=== PATIENT | female | born 1975 | race Hispanic/Latino ===

== ENCOUNTER 2019-12-18 13:00 | Inpatient (IN) | payer BC, OTHER ==
[2019-12-18 15:05] LABS: Absolute Lymphocytes (CBC) 0.5 K/uL (0.7-4.9); Basophils % 0.6 % (0-1.3); Hematocrit 43.5 % (36.0-45.0); MPV 9.3 fL (7.6-11.3); RBC Red Blood Cell Count 4.57 M/uL (3.86-4.86)
[2019-12-18] MEDS ORDERED: NA CHLORIDE 0.9% 1,000 ML ONE (15:06)
[2019-12-18] MEDS ORDERED: ONDANSETRON 4 MG/2 ML VIAL ONE (15:06)
[2019-12-18] MEDS ORDERED: KETOROLAC 30 MG/ML INJ ONE (15:06)
[2019-12-18] MEDS ORDERED: dexAMETHasone 10 MG/ML VIAL ONE (15:06)
[2019-12-18 15:18] LABS: Protime INR 1.04
--- NOTE | 2019-12-18 15:26 | RAD REPORT ---
EXAM DESCRIPTION: [place] Single View12/18/2019 3:19 pm CLINICAL HISTORY: Shortness of breath COMPARISON: none FINDINGS: Moderate bilateral pulmonary opacities The heart is normal size IMPRESSION: Moderate bilateral pulmonary opacities may indicate Covid pneumonia
[2019-12-18 15:47] LABS: ALT/SGPT 85 U/L (12-78); AST/SGOT 58 U/L (15-37); Alkaline Phosphatase 133 U/L (45-117); BUN Blood Urea Nitrogen 11 mg/dL (7-18); Bicarbonate 27 mmol/L (21-32); Bilirubin Direct 0.2 mg/dL (0-0.2); Bilirubin Total 0.4 mg/dL (0.2-1.0); Glucose Level 104 mg/dL (74-106); Magnesium 2.5 mg/dL (1.8-2.4); NT PRO-BNP 22 pg/mL (<125); Potassium 4.2 mmol/L (3.5-5.1); Protein, Total 8.4 g/dL (6.4-8.2); Sodium Level 139 mmol/L (136-145); Troponin (Emerg Dept Use Only) < 0.02 ng/mL (0.0-0.045)
--- NOTE | 2019-12-18 16:11 | ER ---
Nurse's Notes [facility] Name: Bessy Saavedra Age: 44 yrs Sex: Female : 1975 Arrival Date: 12/18/2019 Time: 13:06 Bed 14 Private MD: Diagnosis: Pneumonia due to other specified bacteria;Coronavirus infection, unspecified;Hypoxemia Presentation: 12/17 13:13 Chief complaint: Patient states: "I am still having a hard time breathing with a pretty jd3 bad headache. I was diagnosed on Saturday with COVID at [facility].". Coronavirus screen: cough unrelated to allergies, difficulty breathing, headache, nausea, shortness of breath, Client presents with at least one sign or symptom that may indicate coronavirus-19. Standard/surgical mask placed on the client. Provider contacted for isolation considerations. Ebola Screen: Patient negative for fever greater than or equal to 101.5 degrees Fahrenheit, and additional compatible Ebola Virus Disease symptoms. Initial Sepsis Screen: Does the patient meet any 2 criteria? No. Patient's initial sepsis screen is negative. Does the patient have a suspected source of infection? No. Patient's initial sepsis screen is negative. Risk Assessment: Do you want to hurt yourself or someone else? Patient reports no desire to harm self or others. Onset of symptoms was December 14, 2019. 13:13 Method Of Arrival: Ambulatory jd3 13:13 Acuity: FRED 2 jd3 Triage Assessment: 15:33 Respiratory: Onset: The symptoms/episode began/occurred 5 days ago, the patient has ll1 mild shortness of breath. 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 - Social history:: Smoking status: Patient denies any tobacco usage or history of. Screenin:32 Abuse screen: Denies threats or abuse. Nutritional screening: No deficits noted. ll1 Tuberculosis screening: No symptoms or risk factors identified. Fall Risk IV access (20 points). Gait- Weak (10 pts.). Total Juárez Fall Scale indicates Low Risk Score (25-44 pts). Fall prevention measures have been instituted. Placed close to Nursing Station Frequent Obs/Assesments occuring As available Patient and Family Educated on Fall Prevention Program and strategies. Assessment: 14:10 General: Appears ill, Behavior is calm, cooperative. Pain: Complains of pain in head ll1 Pain currently is 8 out of 10 on a pain scale. Quality of pain is described as aching, Is intermittent. Neuro: Level of Consciousness is awake, alert, obeys commands, Oriented to person, place, time, situation, Appropriate for age Deposit Clerk are equal bilaterally Moves all extremities. Full function Gait is steady, Speech is normal, Facial symmetry appears normal, Reports headache. Cardiovascular: No deficits noted. Rhythm is regular. Respiratory: Airway is patent Trachea midline Respiratory effort is even, labored, Respiratory pattern is symmetrical, tachypnea Breath sounds are diminished bilaterally. GI: Abdomen is flat, Bowel sounds present X 4 quads. Abd is soft and non tender X 4 quads. Reports vomiting, intermittent vomiting with coughing up sputum. Musculoskeletal: Circulation, motion, and sensation intact. Capillary refill < 3 seconds, Reports weakness in generalized. 15:15 Reassessment: No changes from previously documented assessment. Patient and/or family ll1 updated on plan of care and expected duration. Pain level reassessed. Patient is alert, oriented x 3, equal unlabored respirations, skin warm/dry/pink. 16:15 Reassessment: No changes from previously documented assessment. Patient and/or family ll1 updated on plan of care and expected duration. Pain level reassessed. Patient is alert, oriented x 3, equal unlabored respirations, skin warm/dry/pink. To be admitted for pneumonia. Patient verbalized understanding. 17:15 Reassessment: Patient and/or family updated on plan of care and expected duration. Pain ll1 level reassessed. Patient is alert, oriented x 3, equal unlabored respirations, skin warm/dry/pink. 18:15 Reassessment: Patient and/or family updated on plan of care and expected duration. Pain ll1 level reassessed. Patient is alert, oriented x 3, equal unlabored respirations, skin warm/dry/pink. 19:15 Reassessment: Patient and/or family updated on plan of care and expected duration. Pain ll1 level reassessed. Patient is alert, oriented x 3, equal unlabored respirations, skin warm/dry/pink. Feels better with oxygen on. ICU bed 7, patient verbalized understanding. Vital Signs: 13:16 BP 124 / 70; Pulse 95; Resp 26 S; Temp 98.7(TE); Pulse Ox 87% on R/A; Weight 68.04 kg jd3 (R); Height 4 ft. 11 in. (149.86 cm) (R); Pain 8/10; 14:00 BP 96 / 69; Pulse 85; Resp 18; ll1 15:00 BP 106 / 75; Pulse 87; Pulse Ox 92% on 2 lpm NC; ll1 16:00 BP 104 / 68; Pulse 86; Resp 24; Pulse Ox 99% on 2 lpm NC; ll1 16:40 BP 108 / 83; Pulse 87; Resp 22; Pulse Ox 97% on 2 lpm NC; Pain 0/10; ll1 17:00 BP 111 / 79; Pulse 88; Resp 24; Pulse Ox 93% on 2 lpm NC; ll1 18:00 BP 111 / 74; Pulse 75; Resp 23; Pulse Ox 92% on 2 lpm NC; ll1 19:00 BP 107 / 74; Pulse 84; Resp 23; Pulse Ox 93% on 2 lpm NC; ll1 19:28 BP 103 / 67; Pulse 74; Resp 23; Temp 98.9; Pulse Ox 97% on 2 lpm NC; ll1 13:16 Body Mass Index 30.30 (68.04 kg, 149.86 cm) jd3 ED Course: 13:06 Patient arrived in ED. mr 13:15 Triage completed. jd3 13:16 Arm band placed on. jd3 13:40 Pedro Claros, WALTER is Primary Nurse. ll1 13:48 Albin Garcia PA is PHCP. cp 13:48 Deanne Vines MD is Attending Physician. cp 15:19 XRAY Chest (1 view) In Process Unspecified. EDMS 15:33 Patient has correct armband on for positive identification. Bed in low position. Call ll1 light in reach. Side rails up X 1. Pulse ox on. NIBP on. 16:09 Clifford Perry is Hospitalizing Provider. cp 16:50 Inserted saline lock: 20 gauge in right antecubital area, using aseptic technique. ll1 Blood collected. 19:30 No provider procedures requiring assistance completed. 1 19:39 Patient admitted, IV remains in place. 1 Administered Medications: 15:11 Drug: Dexamethasone 6 mg Route: IVP; Site: right antecubital; 1 16:47 Follow up: Response: No adverse reaction; RASS: Alert and Calm (0) 1 15:11 Drug: Zofran (Ondansetron) 4 mg Route: IVP; Site: right antecubital; 1 16:46 Follow up: Response: No adverse reaction; RASS: Alert and Calm (0) [facility] 15:12 Drug: NS 0.9% 1000 ml Route: IV; Rate: 1000 ml/hr; Site: right antecubital; 1 16:47 Follow up: Response: No adverse reaction; RASS: Alert and Calm (0); IV Status: ll1 Completed infusion; IV Intake: 1000ml 15:12 Drug: TORadol - Ketorolac 15 mg Route: IVP; Site: right antecubital; 1 16:47 Follow up: Response: No adverse reaction; RASS: Alert and Calm (0) [facility] Intake: 16:47 IV: 1000ml; Total: 1000ml. [facility] Outcome: 16:10 Decision to Hospitalize by Provider. cp 19:38 Admitted to ICU via stretcher, room ICU 7, on monitor, with chart, Report called to ruben Riley in ICU. No questions about patient condition at this time. 19:38 Condition: stable 19:38 Instructed on the need for admit. 20:02 Patient left the ED. [facility] Signatures: Dispatcher [employer] [email or web address] EubanksDeja Corey, PA PA cp Davies, Jonathon, RN RN jd3 Lewis, Lynsay, RN RN thomas1 Corrections: (The following items were deleted from the chart) 19:46 14:10 Respiratory: Airway is patent Trachea midline Respiratory effort is even, ll1 unlabored, Respiratory pattern is regular, symmetrical, Breath sounds are clear bilaterally. ll1
--- NOTE | 2019-12-18 16:11 | EDPHYS ---
Physician Documentation [facility] Name: Bessy Saavedra Age: 44 yrs Sex: Female : 1975 Arrival Date: 12/18/2019 Time: 13:06 Bed 14 Private MD: ED Physician Deanne Vines HPI: 12/17 14:35 This 44 yrs old Female presents to ER via Ambulatory with complaints of cp COVID+, Breathing Difficulty. 14:35 The patient has shortness of breath at rest. cp 14:35 Onset: The symptoms/episode began/occurred gradually, and became worse today. Duration: cp The symptoms are continuous, and are steadily getting worse. Associated signs and symptoms: Pertinent positives: productive cough, headache, Pertinent negatives: chest pain, diaphoresis, fever. Severity of symptoms: in the emergency department the symptoms are unchanged despite home interventions. Patient reports she was diagnosed 4 days ago with COVID-19 and is currently taking prescribed Zithromax. Patient reports she is currently not taking any steroids. 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 - Social history:: Smoking status: Patient denies any tobacco usage or history of. ROS: 14:40 Constitutional: Negative for body aches, fever, poor PO intake. cp 14:40 Eyes: Negative for injury, pain, redness, and discharge. cp 14:40 ENT: Negative for ear pain, sore throat, difficulty swallowing, difficulty handling secretions. 14:40 Cardiovascular: Negative for chest pain, edema, palpitations. 14:40 Respiratory: Positive for cough, "sounds productive", shortness of breath, at rest. 14:40 Abdomen/GI: Negative for abdominal pain, vomiting, diarrhea, constipation. 14:40 Back: Negative for pain at rest, pain with movement. 14:40 Skin: Negative for rash. 14:40 Neuro: Positive for headache, Negative for altered mental status, syncope, weakness. 14:40 All other systems are negative. Exam: 14:45 Constitutional: The patient appears alert, awake, non-diaphoretic, non-toxic, well cp developed, well nourished, in obvious distress, mildly distressed. 14:45 Head/Face: Normocephalic, atraumatic. cp 14:45 Eyes: Periorbital structures: appear normal, Conjunctiva: normal, no exudate, no injection, Sclera: no appreciated abnormality, Lids and lashes: appear normal, bilaterally. 14:45 ENT: External ear(s): are unremarkable, Nose: is normal, Mouth: Lips: moist, Oral mucosa: moist, Posterior pharynx: Airway: no evidence of obstruction, patent. 14:45 Neck: ROM/movement: is normal, is supple, no meningismus, no nuchal rigidity. 14:45 Chest/axilla: Inspection: normal, Palpation: is normal, no crepitus, no tenderness. 14:45 Cardiovascular: Rate: normal, Rhythm: regular, Edema: is not appreciated, JVD: is not appreciated. 14:45 Respiratory: mild respiratory distress is noted, Respirations: labored breathing, that is mild, shallow respirations, that is mild, tachypnea, that is mild, Breath sounds: bronchial sounds, that are mild, are heard diffusely, decreased breath sounds, that are mild, throughout, stridor, is not appreciated, wheezing: is not appreciated. 14:45 Abdomen/GI: Inspection: abdomen appears normal, Palpation: abdomen is soft and non-tender, in all quadrants. 14:45 Back: pain, is absent, ROM is normal. 14:45 Skin: no rash present. 14:45 Neuro: Orientation: to person, place \\T\\ time. Mentation: is normal, Motor: moves all fours, strength is normal. 15:15 ECG was reviewed by the Attending Physician. cp Vital Signs: 13:16 BP 124 / 70; Pulse 95; Resp 26 S; Temp 98.7(TE); Pulse Ox 87% on R/A; Weight 68.04 kg jd3 (R); Height 4 ft. 11 in. (149.86 cm) (R); Pain 8/10; 14:00 BP 96 / 69; Pulse 85; Resp 18; ll1 15:00 BP 106 / 75; Pulse 87; Pulse Ox 92% on 2 lpm NC; ll1 16:00 BP 104 / 68; Pulse 86; Resp 24; Pulse Ox 99% on 2 lpm NC; ll1 16:40 BP 108 / 83; Pulse 87; Resp 22; Pulse Ox 97% on 2 lpm NC; Pain 0/10; ll1 17:00 BP 111 / 79; Pulse 88; Resp 24; Pulse Ox 93% on 2 lpm NC; ll1 18:00 BP 111 / 74; Pulse 75; Resp 23; Pulse Ox 92% on 2 lpm NC; ll1 19:00 BP 107 / 74; Pulse 84; Resp 23; Pulse Ox 93% on 2 lpm NC; ll1 19:28 BP 103 / 67; Pulse 74; Resp 23; Temp 98.9; Pulse Ox 97% on 2 lpm NC; ll1 13:16 Body Mass Index 30.30 (68.04 kg, 149.86 cm) jd3 MDM: 13:58 Patient medically screened. cp 15:00 Differential diagnosis: Bronchitis pneumonia, pulmonary edema, Pulmonary Embolism cp Sepsis influenza. 16:05 Data reviewed: vital signs, nurses notes, lab test result(s), EKG, radiologic studies, cp plain films. 16:05 Test interpretation: by ED physician or midlevel provider: ECG. Counseling: I had a cp detailed discussion with the patient and/or guardian regarding: the historical points, exam findings, and any diagnostic results supporting the discharge/admit diagnosis, lab results, radiology results, the need for further work-up and treatment in the hospital. Response to treatment: the patient's symptoms have markedly improved after treatment. Physician consultation: Clifford Perry was called at 16:05, was contacted at 16:05, regarding admission, to the medical/surgical unit. patient's condition, and will see patient in ED, shortly. 12/17 14:32 Order name: Basic Metabolic Panel; Complete Time: 16:03 cp 12/17 14:32 Order name: CBC with Diff; Complete Time: 15:40 cp 12/17 15:40 Interpretation: Normal except: LIGIA% 81.2; LYM% 8.0. cp 12/17 14:32 Order name: LFT's; Complete Time: 16:03 cp 12/17 16:04 Interpretation: Normal except: AST 58; ALT 85; ALK 133; TP 8.4; ALB 3.0; GLOB 5.4; A/G cp 0.6. 12/17 14:32 Order name: Magnesium; Complete Time: 16:03 12/17 14:32 Order name: NT PRO-BNP; Complete Time: 16:03 12/17 14:32 Order name: PT-INR; Complete Time: 15:40 12/17 14:32 Order name: Troponin (emerg Dept Use Only); Complete Time: 16:03 12/17 14:32 Order name: Procalcitonin 12/17 14:32 Order name: Lactate; Complete Time: 16:03 12/17 14:32 Order name: Influenza Screen (a \\T\\ B) 12/17 14:32 Order name: D-Dimer; Complete Time: 15:40 12/17 15:41 Interpretation: Reviewed. 12/17 14:32 Order name: CRP; Complete Time: 16:03 12/17 14:32 Order name: Fibrinogen; Complete Time: 15:40 12/17 15:41 Interpretation: Abnormal: FIB 581. 12/17 18:06 Order name: Urine Dipstick--Ancillary (enter results) 12/17 14:32 Order name: XRAY Chest (1 view); Complete Time: 15:40 12/17 14:32 Order name: EKG; Complete Time: 14:33 12/17 14:32 Order name: Cardiac monitoring; Complete Time: 15:13 12/17 14:32 Order name: EKG - Nurse/Tech; Complete Time: 15:12 12/17 14:32 Order name: IV Saline Lock; Complete Time: 15:12 12/17 14:32 Order name: Labs collected and sent; Complete Time: 15:13 12/17 14:32 Order name: O2 Per Protocol; Complete Time: 15:13 12/17 14:32 Order name: O2 Sat Monitoring; Complete Time: 15:13 12/17 14:32 Order name: Urine Dipstick-Ancillary (obtain specimen); Complete Time: 17:58 12/17 18:06 Order name: Urine --Ancillary (enter results) 12/17 18:48 Order name: Urine --Ancillary [facility] 12/17 18:48 Order name: Urine Dipstick-Ancillary [facility] 12/17 14:32 Order name: Urine Test (obtain specimen); Complete Time: 17:58 cp EC:15 Rate is 83 beats/min. Rhythm is regular. CO interval is normal. QRS interval is normal. cp QT interval is normal. T waves are Inverted in lead aVR. Interpreted by me. Reviewed by me. Administered Medications: 15:11 Drug: Dexamethasone 6 mg Route: IVP; Site: right antecubital; ll1 16:47 Follow up: Response: No adverse reaction; RASS: Alert and Calm (0) ll1 15:11 Drug: Zofran (Ondansetron) 4 mg Route: IVP; Site: right antecubital; ll1 16:46 Follow up: Response: No adverse reaction; RASS: Alert and Calm (0) ll1 15:12 Drug: NS 0.9% 1000 ml Route: IV; Rate: 1000 ml/hr; Site: right antecubital; ll1 16:47 Follow up: Response: No adverse reaction; RASS: Alert and Calm (0); IV Status: ll1 Completed infusion; IV Intake: 1000ml 15:12 Drug: TORadol - Ketorolac 15 mg Route: IVP; Site: right antecubital; ll1 16:47 Follow up: Response: No adverse reaction; RASS: Alert and Calm (0) ll1 Disposition: 12/18/19 16:10 Hospitalization ordered by Clifford Perry for Inpatient Admission. Preliminary diagnosis are Pneumonia due to other specified bacteria, Coronavirus infection, unspecified, Hypoxemia. - Bed requested for Intensive Care Unit. - Status is Inpatient Admission. ll1 - Condition is Fair. - Problem is new. - Symptoms have improved. Signatures: Dispatcher [employer] Lauren Galan RN RN dw Page, Corey, PA PA cp Davies, Jonathon, RN RN jPedro Fan RN RN ll1 Corrections: (The following items were deleted from the chart) 18:28 16:10 Hospitalization Ordered by Clifford Perry for Inpatient Admission. Preliminary gordon diagnosis is Pneumonia due to other specified bacteria; Coronavirus infection, unspecified; Hypoxemia. Bed requested for Telemetry/MedSurg (Inpatient). Status is Inpatient Admission. Condition is Fair. Problem is new. Symptoms have improved. cp 20:02 18:28 12/18/2019 16:10 Hospitalization Ordered by Clifford Perry for Inpatient ll1 Admission. Preliminary diagnosis is Pneumonia due to other specified bacteria; Coronavirus infection, unspecified; Hypoxemia. Bed requested for Intensive Care Unit. Status is Inpatient Admission. Condition is Fair. Problem is new. Symptoms have improved. dw
--- NOTE | 2019-12-18 17:25 | P.HP ---
Certification for Inpatient Patient admitted to: Observation With expected LOS: <2 Midnights Practitioner: I am a practitioner with admitting privileges, knowledge of patient current condition, hospital course, and medical plan of care. Services: Services provided to patient in accordance with Admission requirements found in Title 42 Section 412.3 of the Code of Federal Regulations Patient History Date of Service: 12/18/19 Reason for admission: Shortness of breath History of Present Illness: 44-year-old woman with no significant past medical history presented emergency department with a complaint of progressive shortness of breath which has been present for 1 week. Patient tested for COVID 19 5 days ago and was started on oral Zithromax. She presented emergency department for worsening shortness of breath. Chest x-ray demonstrated bilateral opacities suggestive of viral pneumonia. Her oxygen saturation was 87% on room air. Patient is placed under observation for further management. Allergies No Known Allergies Allergy (Verified 08/16/15 06:45) Home Medications: NK [No Home Meds] 08/11/15 - Past Medical/Surgical History -: None -: section - Family History Mother -: Diabetes - Social History Smoking Status: Never smoker Alcohol use: No CD- Drugs: No Review of Systems Other: Except as documented, all other systems reviewed and negative Physical Examination - Physical Exam General: Alert, In no apparent distress, Oriented x3 HEENT: Mucous membr. moist/pink Neck: Supple Respiratory: Clear to auscultation bilaterally, Normal air movement Cardiovascular: No edema, Regular rate/rhythm, Normal S1 S2 Gastrointestinal: Normal bowel sounds, Soft and benign, No tenderness Musculoskeletal: No swelling Integumentary: No tenderness/swelling Neurological: Normal strength at 5/5 x4 extr, Cranial nerves 3-12 intact - Studies Laboratory Data (last 24 hrs) 12/18/19 14:45: PT 12.3, INR 1.04 12/18/19 14:45: WBC 6.8, Hgb 14.6, Hct 43.5, Plt Count 277 12/18/19 14:45: Sodium 139, Potassium 4.2, BUN 11, Creatinine 0.80, Glucose 104, Magnesium 2.5 H, Total Bilirubin 0.4, AST 58 H, ALT 85 H, Alkaline Phosphatase 133 H Assessment and Plan - Problems (Diagnosis) (1) Acute respiratory failure with hypoxia Current Visit: Yes Status: Acute (2) Pneumonia due to COVID-19 virus Current Visit: Yes Status: Acute - Plan Place under observation. Patient will be treated with: Supplemental oxygen IV dexamethasone IV zithromax IV Lasix p.r.n. - Advance Directives Does patient have a Living Will: No Does patient have a Durable POA for Healthcare: No
[2019-12-18 18:48] LABS: Urine Blood 2+ (NEG); Urine Glucose NEGATIVE (NEG); Urine Protein 1+ (NEG)
[2019-12-18] MEDS ORDERED: ACETAMINOPHEN 500 MG TAB PO PRN (19:38)
[2019-12-18] MEDS: ENOXAPARIN 40 MG/0.4 ML SQ SCH (21:12)
[2019-12-19] MEDS: dexAMETHasone 4 MG/ML VIAL IV SCH ×2 (00:49→08:23)
[2019-12-19 05:04] LABS: Absolute Lymphocytes (CBC) 0.4 K/uL (0.7-4.9); Basophils % 0.7 % (0-1.3); Hematocrit 41.9 % (36.0-45.0); Lymphocytes % 8.9 % (15.3-44.8); MPV 9.1 fL (7.6-11.3); RBC Red Blood Cell Count 4.41 M/uL (3.86-4.86)
[2019-12-19 05:14] LABS: Magnesium 2.7 mg/dL (1.8-2.4); Phosphorus 3.3 mg/dL (2.5-4.9)
[2019-12-19] MEDS: ENOXAPARIN 40 MG/0.4 ML SQ SCH (08:24)
[2019-12-19] MEDS ORDERED: AZITHROMYCIN IV 500 MG in NA CHLORIDE 0.9% 250 ML IVPB SCH (09:00)
--- NOTE | 2019-12-19 11:18 | P.CNS ---
Date of Consult: 12/19/19 ( telephone visit) Reason for Consult: respiratory failure from levy virus Chief Complaint: respiratory failure History of Present Illness: patient is 44 years of age exposure to COVID admitted with bilateral infiltrates and hypoxemia diagnosis consistent with levy virus ARDS was complaining of some coughing spells was also exposed patient was prescribed albuterol inhaler and Zithromax Allergies No Known Allergies Allergy (Verified 08/16/15 06:45) Home Medications: Albuterol Inhaler [Ventolin Inhaler] 1 puff IH Q4HP PRN 12/18/19 Azithromycin Tab [Zithromax*] 250 mg PO SEECOM 12/18/19 Benzonatate [Tessalon Perle] 200 mg PO TIDP PRN 12/18/19 Etodolac 200 mg PO Q8H 12/18/19 - Past Medical/Surgical History Diabetic: No -: None -: section -: Tubal ligation - Family History Mother Medical History: Hypertension, Diabetes - Social History Alcohol use: No CD- Drugs: No Caffeine use: Yes Place of Residence: Home Physical Examination Temp Pulse Resp BP Pulse Ox 98.1 F 91 H 34 H 109/70 94 12/19/19 08:00 12/19/19 08:00 12/19/19 08:00 12/19/19 08:00 12/19/19 08:00 Laboratory Data (last 24 hrs) 12/19/19 04:43: Sodium 142, Potassium 4.0, BUN 13, Creatinine 0.74, Glucose 128 H, Phosphorus 3.3, Magnesium 2.7 H 12/19/19 04:43: WBC 4.6 D, Hgb 14.1, Hct 41.9, Plt Count 303 12/18/19 14:45: PT 12.3, INR 1.04 12/18/19 14:45: WBC 6.8, Hgb 14.6, Hct 43.5, Plt Count 277 12/18/19 14:45: Sodium 139, Potassium 4.2, BUN 11, Creatinine 0.80, Glucose 104, Magnesium 2.5 H, Total Bilirubin 0.4, AST 58 H, ALT 85 H, Alkaline Phosphatase 133 H - Problems (1) Acute respiratory failure with hypoxia Current Visit: Yes Status: Acute Plan: patient is 44 years of age admitted with hypoxemia bilateral pulmonary infiltrates consistent with levy virus pneumonia and ARDS increase dose of steroids monitor CRP Dc antibiotics fully anti coagulated patient chemistries reviewed labs unremarkable CRP elevated titrate sat 85-90% in courage prone positioning arrange for home O2 possible discharge in 1 or 2 days (2) Pneumonia due to COVID-19 virus Current Visit: Yes Status: Acute Plan: patient tested positive for levy virus exposure from
[2019-12-19] MEDS: APIXABAN 5 MG TABLET PO SCH ×2 (13:30→19:22)
[2019-12-19] MEDS: METHYLPREDNISOLONE 125 MG INJ IV SCH ×2 (13:30→19:22)
--- NOTE | 2019-12-19 15:36 | P.PN ---
Subjective Date of Service: 12/19/19 Chief Complaint: respiratory failure Patient desaturates on room air. She is requiring 3-5 L of oxygen to maintain her SaO2 greater than 90%. Physical Examination - Vital Signs Temperature: 98.9 F Blood Pressure: 102/59 Pulse: 63 Respirations: 29 Pulse Ox (%): 90 - Physical Exam General: Alert, In no apparent distress Respiratory: Crackles/rales (Bilateral) Cardiovascular: No edema, Regular rate/rhythm, Normal S1 S2 Gastrointestinal: Soft and benign, No tenderness Musculoskeletal: No swelling, No erythema Integumentary: No rashes - Studies Laboratory Data (last 24 hrs) 12/19/19 04:43: Sodium 142, Potassium 4.0, BUN 13, Creatinine 0.74, Glucose 128 H, Phosphorus 3.3, Magnesium 2.7 H 12/19/19 04:43: WBC 4.6 D, Hgb 14.1, Hct 41.9, Plt Count 303 12/18/19 14:45: Sodium 139, Potassium 4.2, BUN 11, Creatinine 0.80, Glucose 104, Magnesium 2.5 H, Total Bilirubin 0.4, AST 58 H, ALT 85 H, Alkaline Phosphatase 133 H Microbiology Data (last 24 hrs): 12/18/19 14:40 Nasopharnyx Influenza Type A Antigen Screen - Final 12/18/19 14:40 Nasopharnyx Influenza Type B Antigen Screen - Final Assessment And Plan - Current Problems (Diagnosis) (1) Acute respiratory failure with hypoxia Current Visit: Yes Status: Acute (2) Pneumonia due to COVID-19 virus Current Visit: Yes Status: Acute - Plan Change admission status to inpatient. Titrate oxygen, Pulmonary input appreciated High-dose IV methylprednisone Antibiotics discontinued Full anticoagulation. Patient started on Eliquis. IV Lasix p.r.n. Monitor CRP.
[2019-12-20] MEDS: METHYLPREDNISOLONE 125 MG INJ IV SCH ×2 (09:14→19:57)
[2019-12-20] MEDS: APIXABAN 5 MG TABLET PO SCH ×2 (09:14→19:56)
--- NOTE | 2019-12-20 09:48 | EKG ---
Test Date: 2019-12-18 Test Time: 15:08:05 Trust Administrator: MART MEASUREMENT RESULTS: Intervals: Rate: 83 NC: 148 QRSD: 82 QT: 362 QTc: 425 [place]: P: 35 NC: 148 QRS: -27 T: 26 INTERPRETIVE STATEMENTS: Normal sinus rhythm Normal ECG No previous ECG available for comparison Electronically Signed On 12-20-19 09:44:45 CDT by Bryant Chandler
--- NOTE | 2019-12-20 10:40 | P.PN ---
Subjective Date of Service: 12/20/19 Chief Complaint: respiratory failure No major changes. Patient is hypoxic on room air and she is complaining of shortness of breath. Physical Examination - Vital Signs Temperature: 99.3 F Blood Pressure: 100/60 Pulse: 66 Respirations: 27 Pulse Ox (%): 95 - Physical Exam General: Alert, Mild distress HEENT: Mucous membr. moist/pink Respiratory: Crackles/rales (Bilateral crackles) Cardiovascular: No edema, Regular rate/rhythm, Normal S1 S2 Gastrointestinal: Normal bowel sounds, Soft and benign, No tenderness Musculoskeletal: No swelling, No erythema Assessment And Plan - Current Problems (Diagnosis) (1) Acute respiratory failure with hypoxia Current Visit: Yes Status: Acute (2) Pneumonia due to COVID-19 virus Current Visit: Yes Status: Acute - Plan Continue current treatment Titrate oxygen, Pulmonary is following High-dose IV methylprednisone Full anticoagulation. Patient started on Eliquis. IV Lasix p.r.n. CRP has trended down significantly.
[2019-12-20] MEDS: BENZONATATE 100 MG CAP PO PRN (20:13)
[2019-12-21 02:35] VITALS: O2SAT 92
[2019-12-21 05:17] VITALS: BMI 28.8
[2019-12-21 05:19] VITALS: TEMP 97
[2019-12-21] MEDS: BENZONATATE 100 MG CAP PO PRN (05:37)
[2019-12-21 05:39] LABS: Absolute Lymphocytes (CBC) 0.8 K/uL (0.7-4.9); Basophils % 0.2 % (0-1.3); Hematocrit 42.7 % (36.0-45.0); Lymphocytes % 6.5 % (15.3-44.8); MPV 9.1 fL (7.6-11.3)
[2019-12-21 05:57] LABS: C-Reactive Protein 10.8 mg/L (<3.00); Potassium 4.5 mmol/L (3.5-5.1)
[2019-12-21 06:18] LABS: Blood Morphology Comment NOT SEEN (NOT SEEN); Platelet Estimate ADEQ; White Blood Cell Scan OK (OK)
[2019-12-21] MEDS: APIXABAN 5 MG TABLET PO SCH (08:16)
[2019-12-21] MEDS: METHYLPREDNISOLONE 125 MG INJ IV SCH (08:17)
--- NOTE | 2019-12-21 12:17 | P.PN ---
Subjective Date of Service: 12/20/19 (Telephone was) Chief Complaint: respiratory failure Subjective: Improving (Patient's condition is stable she still has desaturation or minimal exertion) Physical Examination - Vital Signs Temperature: 97 F Blood Pressure: 121/75 Pulse: 62 Respirations: 28 Pulse Ox (%): 90 Assessment & Plan - Problems (Diagnosis) (1) Acute respiratory failure with hypoxia Current Visit: Yes Status: Acute Plan: Patient admitted with pneumonia due to respiratory failure condition is stable she is on nasal cannula oxygen still experiencing significant desat with exertion CRP is less than 50 plan for home oxygen possible discharge (2) Pneumonia due to COVID-19 virus Current Visit: Yes Status: Acute Plan: patient tested positive for levy virus exposure from
--- NOTE | 2019-12-21 12:19 | P.PN ---
Subjective Date of Service: 12/21/19 Chief Complaint: respiratory failure Subjective: Improving (Improving no new change still has had dyspnea on mild exertion but she recovers quickly CRP is also declined) Physical Examination - Vital Signs Temperature: 97 F Blood Pressure: 121/75 Pulse: 62 Respirations: 28 Pulse Ox (%): 90 Assessment & Plan - Problems (Diagnosis) (1) Acute respiratory failure with hypoxia Current Visit: Yes Status: Acute Plan: Patient is currently stable doing well split is seen desat on mild exertion CRP is not down to 10.8 patient is stable on nasal cannula oxygen recommend discharge on 4 L of nasal cannula oxygen prednisone 20 mg b.i.d. for at least 2 weeks fully anti coagulated with either Eliquis or Lovenox not possible consider using aspirin telephone visit with me in 1 week patient will experience desat on exertion with the improved fairly quickly multi vitamin supplement (2) Pneumonia due to COVID-19 virus Current Visit: Yes Status: Acute Plan: patient tested positive for levy virus exposure from
--- NOTE | 2019-12-21 13:45 | P.DS ---
Admission Date: 12/19/19 Discharge Date: 12/21/19 Disposition: ROUTINE DISCHARGE Discharge Condition: FAIR Reason for Admission: respiratory failure - Problems (1) Acute respiratory failure with hypoxia Current Visit: Yes Status: Acute (2) Pneumonia due to COVID-19 virus Current Visit: Yes Status: Acute Brief History of Present Illness: 44-year-old woman with no significant past medical history presented emergency department with a complaint of progressive shortness of breath which has been present for 1 week. Patient tested for COVID 19 5 days ago and was started on oral Zithromax. She presented emergency department for worsening shortness of breath. Chest x-ray demonstrated bilateral opacities suggestive of viral pneumonia. Her oxygen saturation was 87% on room air. Patient was admitted for further management. Hospital Course: Patient admitted and treated supportively with oxygen. She was also treated with IV steroid and Eliquis anticoagulation. CRP was monitored which declined significantly with treatment. Patient generally complained of shortness of breath at rest, was maintained on 2-3 L of oxygen, and would desaturate with activity. She has been afebrile, no leukocytosis. She has been clinically stable and has not progressed. Patient will be discharged with home oxygen, oral prednisone and Eliquis anticoagulation. She will follow with Dr. Langley within 1 week. Vital Signs/Physical Exam: Temp Pulse Resp BP Pulse Ox 97 F 62 28 H 121/75 90 L 12/21/19 12:19 12/21/19 12:19 12/21/19 12:19 12/21/19 12:19 12/21/19 12:19 General: Alert, In no apparent distress HEENT: Mucous membr. moist/pink Neck: JVD not distended Cardiovascular: No edema Gastrointestinal: Non-distended Musculoskeletal: No swelling, No erythema Integumentary: No rashes Neurological: Other (Nonfocal) Laboratory Data at Discharge: WBC 12.4 K/uL (4.3-10.9) H D 12/21/19 05:08 Hgb 14.5 g/dL (12.0-15.0) 12/21/19 05:08 Hct 42.7 % (36.0-45.0) 12/21/19 05:08 Plt Count 363 K/uL (152-406) 12/21/19 05:08 PT 12.3 SECONDS (9.5-12.5) 12/18/19 14:45 INR 1.04 12/18/19 14:45 Sodium 141 mmol/L (136-145) 12/21/19 05:08 Potassium 4.5 mmol/L (3.5-5.1) 12/21/19 05:08 BUN 22 mg/dL (7-18) H 12/21/19 05:08 Creatinine 0.85 mg/dL (0.55-1.3) 12/21/19 05:08 Glucose 136 mg/dL (74-106) H 12/21/19 05:08 Phosphorus 3.3 mg/dL (2.5-4.9) 12/19/19 04:43 Magnesium 2.7 mg/dL (1.8-2.4) H 12/19/19 04:43 Total Bilirubin 0.4 mg/dL (0.2-1.0) 12/18/19 14:45 AST 58 U/L (15-37) H 12/18/19 14:45 ALT 85 U/L (12-78) H 12/18/19 14:45 Alkaline Phosphatase 133 U/L (45-117) H 12/18/19 14:45 Home Medications: Albuterol Inhaler [Ventolin Inhaler*] 1 puff IH Q4HP PRN 12/18/19 Benzonatate [Tessalon Perle*] 200 mg PO TIDP PRN 12/18/19 Apixaban [Eliquis] 5 mg PO BID #60 tablet 12/21/19 Ascorbate Calcium [Vitamin C] 500 mg PO BID #60 tablet 12/21/19 Cholecalciferol (Vitamin D3) [Vitamin D3] 2,000 unit PO DAILY #30 capsule 12/21/19 Zinc Sulfate [Zinc Sulfate*] 220 mg PO DAILY #60 cap 12/21/19 predniSONE [Prednisone*] 20 mg PO BID #20 tab 12/21/19 New Medications: Apixaban [Eliquis] 5 mg PO BID #60 tablet predniSONE [Prednisone*] 20 mg PO BID #20 tab Ascorbate Calcium [Vitamin C] 500 mg PO BID #60 tablet Cholecalciferol (Vitamin D3) [Vitamin D3] 2,000 unit PO DAILY #30 capsule Zinc Sulfate [Zinc Sulfate*] 220 mg PO DAILY #60 cap Patient Discharge Instructions: Home oxygen-3 liters/minute by nasal cannula. Diet: Regular Activity: Ad susan Time spent managing pt's care (in minutes): 42
[2019-12-21 18:32] VITALS: BP 110/60
== END 2019-12-21 18:45 | disposition home or self-care (01) | DRG 177 ==
LOC: ER 13:00 → ERHOLD 17:30 → 3RD-ICU 19:44 → OBSVTOIN 12-19 09:18
PROVIDERS: ADMIT Internal Medicine; ATTEND Internal Medicine
DX: U07.1 COVID-19 (principal); J12.89 Other viral pneumonia; J96.01 Acute respiratory failure with hypoxia; Z98.51 Tubal ligation status
CPT/HCPCS: 36415; 71045; 80048; 80076; 81003; 81025; 82947; 83605; 83735; 83880; 84100; 84145; 84484; 85025; 85379; 85384; 85610; 86140; 87804; 93005; 94660; 94760; 96361; 96374; 96375; 99285; G0378; J0456; J1100; J1650; J2405; J2930; J7030; J7050